=== PATIENT | male | born 1990 | race Asian ===

== ENCOUNTER 2020-04-26 23:59 | Emergency (ER) | payer OTHER ==
[~2020-04-26] VITALS: Ht 188 cm; Wt 96.0 kg
[2020-04-27] MEDS ORDERED: MORPHINE SULFATE 4 MG/ML CPJ (NOT FOR IM USE) IV ONE ×2 (00:30→02:30)
[2020-04-27] MEDS ORDERED: ONDANSETRON HCL 4MG/2ML INJ IV ONE (00:30)
[2020-04-27 03:24] VITALS: BP 138/87
== END 2020-04-27 05:01 | disposition home or self-care (01) ==
LOC: ER 23:59
DX: S42.412A Displaced simple supracondylar fracture without intercondylar fracture of left humerus, initial encounter for closed fracture (principal); I49.9 Cardiac arrhythmia, unspecified; V49.88XA Car occupant (driver) (passenger) injured in other specified transport accidents, initial encounter; Y93.89 Activity, other specified; Y92.89 Other specified places as the place of occurrence of the external cause; Y99.8 Other external cause status
CPT/HCPCS: 73060; 73090; 93005; 96374; 96375; 96376; 99284; J2270; J2405; Z7610; A4565